=== PATIENT | female | born 1990 | race Caucasian/White ===

== ENCOUNTER 2018-10-27 05:04 | Emergency (ER) | payer OTHER ==
[~2018-10-27] VITALS: Ht 152.4 cm; Wt 60.8 kg
[2018-10-27 05:10] VITALS: BP 132/79
[2018-10-27] MEDS ORDERED: KETOROLAC 60 MG/2 ML VIAL IM ONE (05:20)
--- NOTE | 2018-10-27 05:31 | NUR ---
28/F PRESENTS TO ED, C/O BODYACHES X12 HRS. REPORTS SUBJECTIVE FEVER AND CHILLS, AFEBRILE AT THIS TIME. DENIES CP, SOB, N/V/D OR DYSURIA. PT REPORTS TAKING TYLENOL AND MOTRIN LAST NIGHT WITH NO RELIEF. PT AOX4, GCS 15, RR EVEN AND UNLABORED. DENIES MED HX OR RX. Addendum: 10/27/18 at 0554 by MARI REPORTS TAKING DAYQUIL AND NYQUIL (NOT MOTRIN AND TYLENOL) WITHOUT RELIEF.
[2018-10-27 05:59] VITALS: BP 122/67
--- NOTE | 2018-10-27 05:59 | NUR ---
Patient discharged with v/s stable. Written and verbal after care instructions given and explained. Patient alert, oriented and verbalized understanding of instructions. Ambulatory with steady gait. All questions addressed prior to discharge. ID band removed. Patient advised to follow up with PMD. Rx of TAMIFLU, MOTRIN given. Patient educated on indication of medication including possible reaction and side effects. Opportunity to ask questions provided and answered.
== END 2018-10-27 05:57 | disposition home or self-care (01) ==
LOC: MED 05:04
DX: J06.9 Acute upper respiratory infection, unspecified (principal); R03.0 Elevated blood-pressure reading, without diagnosis of hypertension
CPT/HCPCS: 81002; 81025; 87804; 96372; 99283; J1885